=== PATIENT | female | born 1960 | race Caucasian/White ===

== ENCOUNTER 2016-06-08 08:34 | Outpatient (CLI) | payer OTHER ==
--- NOTE | 2016-06-08 10:29 | DIAGNOSTIC IMAGING REPORT ---
PROCEDURE: CT ABDOMEN/PELVIS W/O CONTRAST INDICATION: RT SIDED CHEST WALL PAIN, initial encounter TECHNIQUE: Noncontrast axial images were obtained of the entire abdomen and pelvis with sagittal and coronal reformations. COMPARISON: None. FINDINGS: ABDOMEN: There are bilateral nonobstructing renal calculi, largest on the right 15 mm and on the left 3.7 mm. Small left renal cortical cyst. Cholecystectomy and splenectomy. Liver, pancreas and adrenal glands are normal. Mild atherosclerosis of the aorta. Nonspecific bowel gas pattern. Left anterior abdominal wall surgical scar. PELVIS: Right lower quadrant surgical clip. Normal appendix. Surgical clip between the rectum and uterus. Uterus, adnexa and bladder are normal. No free fluid or inflammatory changes. No suspicious osseous lesions. IMPRESSION: 1. Bilateral nonobstructing renal calculi 2. Cholecystectomy and splenectomy All CT scans at this facility use dose modulation, iterative reconstruction, and/or weight-based dosing when appropriate to reduce radiation dose to as low as reasonably achievable.
--- NOTE | 2016-06-08 10:31 | DIAGNOSTIC IMAGING REPORT ---
PROCEDURE: CT THORAX WITH CONTRAST INDICATION: RT SIDED CHEST WALL PAIN, initial encounter TECHNIQUE: 125 ml of Isovue 300 was injected intravenously and axial images were obtained of the chest with coronal and sagittal reformations. COMPARISON: Outside right rib series 06/01/2016 FINDINGS: Minor right middle lobe scar. There is no mediastinal or hilar adenopathy. No effusion. 1.1 cm right thyroid lobe nodule. Normal thoracic aorta without dissection or aneurysm. Minor coronary atherosclerosis. Normal heart size. Cholecystectomy. Bilateral renal cysts and calculi. Splenectomy. No rib fractures or suspicious osseous lesions. Moderate degenerative changes of the spine. IMPRESSION: 1. Negative CT chest 2. Cholecystectomy and splenectomy 3. Bilateral renal calculi
== END 2016-06-08 23:00 ==
LOC: CT SRH 08:34
DX: R07.89 Other chest pain (principal)